=== PATIENT | female | born 1960 | race African-American/Black ===

== ENCOUNTER 2017-06-14 15:22 | Observation (INO) | payer OTHER ==
[~2017-06-14] VITALS: Ht 167.6 cm; Wt 82.0 kg
[~2017-06-14 15:22] MED LIST: AMLO5TAB22 PO; CARV25TA PO; FLON0.053; GABA300C3 PO; HYDR-3580 PO; OMEP20TA39 PO; ROPI.5 PO; VENL75 PO; VENL75TA91 PO
[2017-06-14 15:28] VITALS: BP 144/83; PULSE 60; RESP 15; TEMP 98.4; O2SAT 99
[2017-06-14] MEDS ORDERED: CARV25TA PO (15:38)
[2017-06-14] MEDS ORDERED: ESTR1TAB PO (15:38)
[2017-06-14] MEDS ORDERED: AMLO5 PO (15:38)
[2017-06-14] MEDS ORDERED: ZOFR8TAB PO (15:38)
[2017-06-14] MEDS ORDERED: GLUC1000 PO (15:38)
[2017-06-14] MEDS ORDERED: OXYC-395 PO (15:38)
[2017-06-14] MEDS ORDERED: PRIL20TA2 PO (15:38)
[2017-06-14] MEDS ORDERED: CITA20TA4 PO (15:38)
[2017-06-14 16:10] LABS: AUTOMATED NEUTROPHIL # 2.4 TH/MM3 (1.8-7.7); BASOPHIL % 0.9 % (0.0-2.0); EOSINOPHIL # 0.2 TH/MM3 (0-0.4); EOSINOPHIL % 3.7 % (0.0-4.0); HEMO FLAGS DIFF FINAL; LYMPH % 37.8 % (9.0-44.0); LYMPHOCYTE # 1.9 TH/MM3 (1.0-4.8); MEAN CELL VOLUME 81.3 FL (80.0-100.0); MEAN CORPUSCULAR HEMOGLOBIN 26.3 PG (27.0-34.0); MEAN CORPUSCULAR HGB CONC 32.3 % (32.0-36.0); MONO % 9.1 % (0.0-8.0); NEUT % 48.5 % (16.0-70.0); PLATELET COUNT 250 TH/MM3 (150-450); RED BLOOD COUNT 4.55 MIL/MM3 (4.00-5.30); RED CELL DISTRIBUTION WIDTH 14.1 % (11.6-17.2)
[2017-06-14 16:41] LABS: ANION GAP 8 MEQ/L (5-15); BLOOD UREA NITROGEN 18 MG/DL (7-18); CHLORIDE 107 MEQ/L (98-107); GLOMERULAR FILTRATION RATE 90 ML/MIN (>89); POTASSIUM 3.8 MEQ/L (3.5-5.1); SODIUM (NA) 142 MEQ/L (136-145)
[2017-06-14 17:09] LABS: CREATINE KINASE 72 U/L (26-192)
--- NOTE | 2017-06-14 18:24 | PD ---
HPI Chief Complaint: Chest Pain Time Seen by Provider: 18:19 Travel History International Travel<30 days: No Contact w/Intl Traveler<30days: No Traveled to known affect area: No History of Present Illness HPI 57-year-old Afro-[place]ian female presents the emergency department via EMS status post episode of chest pressure with left arm pain, and nausea while attending the pain clinic. Patient states she was given aspirin and pain improved. Patient's original EKG showed normal sinus rhythm without significant ST changes. Labs were ordered per protocol while seen in the trauma ambulance [place]. 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 Patient states she did have a stress test about 10 years ago but none since. She is allergic to morphine which makes her itch, and trazodone. PFSH Past Medical History Arthritis: Yes Blood Disorders: No Anxiety: Yes Depression: Yes Heart Rhythm Problems: No Cancer: No Cardiac Catheterization: Yes Cardiovascular Problems: Yes High Cholesterol: Yes Chemotherapy: No Chest Pain: Yes Congestive Heart Failure: No Diabetes: No Diminished Hearing: No Endocrine: No Gastrointestinal Disorders: Yes GERD: Yes Genitourinary: No Hypertension: Yes Immune Disorder: No Kidney Stones: No Musculoskeletal: Yes (CHRONIC LOW BACK PAIN HERNIATED DISCS T12-S1.) Neurologic: No Reproductive: No Respiratory: Yes ( CPAP AT NIGHT ) Myocardial Infarction: No Radiation Therapy: No Renal Failure: No Sleep Apnea: Yes Ulcer: Yes (BARRETTS ESOPHAGITIS) Tetanus Vaccination: Unknown Influenza Vaccination: No ?: Not Menopausal: Yes : 4 Para: 3 Miscarriage: 1 Past Surgical History Abdominal Surgery: Yes AICD: No Appendectomy: Yes (IN 1999) Arteriovenous Shunt: No Cholecystectomy: Yes ([place] 1992) Coronary Artery Bypass Graft: No Hysterectomy: Yes (RADICAL IN 1998) Insulin Pump: No Joint Replacement: No Neurologic Surgery: Yes (CERVICAL FUSION C5,C6 IN 2000) Pacemaker: No Other Surgery: Yes ( bilat salpengo-oophorectomy ) Social History Alcohol Use: No Tobacco Use: No Substance Use: No Allergies-Medications (Allergen,Severity, Reaction): Coded Allergies: trazodone (Verified Allergy, Severe, RAPID HEARTBEAT, 06/14/17) morphine (Unverified Adverse Reaction, Mild, Itching, 06/14/17) Reported Meds & Prescriptions Reported Meds & Active Scripts Active Reported Estradiol 1 Mg Tab 1 Mg PO DAILY Zofran (Ondansetron HCl) 8 Mg Tab 8 Mg PO DAILY Glucophage (Metformin HCl) 1,000 Mg Tab 1,000 Mg PO BIDPC Oxycodone (Oxycodone HCl) 10 Mg Tab 10 Mg PO Q6H PRN Citalopram (Citalopram Hydrobromide) 20 Mg Tab 20 Mg PO DAILY Norvasc (Amlodipine Besylate) 5 Mg Tab 5 Mg PO DAILY Prilosec (Omeprazole Magnesium) 20 Mg Tab Carvedilol 25 Mg Tab 25 Mg PO DAILY Review of Systems Except as stated in HPI: all other systems reviewed are Neg General / Constitutional: No: Fever Eyes: No: Visual changes HENT: No: Headaches Cardiovascular: Positive: Chest Pain or Discomfort, Other (left arm pain), No: Palpitations, Irregular Rhythm, Syncope, Dyspnea on exertion, Varicosities, Edema, Varicosities, Phlebitis, Claudication Respiratory: No: Shortness of Breath Gastrointestinal: Positive: Nausea, No: Vomiting, Diarrhea, Abdominal Pain Genitourinary: No: Dysuria Musculoskeletal: No: Pain Skin: No Rash Neurologic: No: Weakness Psychiatric: No: Depression Endocrine: No: Polydipsia Hematologic/Lymphatic: No: Easy Bruising Physical Exam Narrative GENERAL: Patient appears in no acute distress. SKIN: Warm and dry. Normal color. Normal turgor. HEAD: Atraumatic. Normocephalic. EYES: Pupils equal and round. No scleral icterus. No injection or drainage. ENT: No nasal bleeding or discharge. Mucous membranes pink and moist. NECK: Trachea midline. No JVD. Supple and nontender. CARDIOVASCULAR: Regular rate and rhythm. No murmurs gallops or rubs appreciated. RESPIRATORY: No accessory muscle use. Clear to auscultation. Breath sounds equal bilaterally. GASTROINTESTINAL: Abdomen soft, non-tender, nondistended. Hepatic and splenic margins not palpable. MUSCULOSKELETAL: Extremities without clubbing, cyanosis, or edema. No obvious deformities. NEUROLOGICAL: Awake and alert. No obvious cranial nerve deficits. Motor grossly within normal limits. Five out of 5 muscle strength in the arms and legs. Normal speech. PSYCHIATRIC: Appropriate mood and affect; insight and judgment normal. Data Data Last Documented VS Vital Signs Date Time Temp Pulse Resp B/P (MAP) Pulse Ox O2 Delivery O2 Flow Rate FiO2 06/14/17 15:30 Nasal Cannula 2.00 06/14/17 15:28 98.4 60 15 144/83 (103) 99 Orders Orders Electrocardiogram (06/14/17 15:39) Complete Blood Count With Diff (06/14/17 15:39) Basic Metabolic Panel (Bmp) (06/14/17 15:39) Ckmb (Isoenzyme) Profile (06/14/17 15:39) Troponin I (06/14/17 15:39) Chest, Single Ap (06/14/17 15:39) Iv Access Insert/Monitor (06/14/17 15:39) Ecg Monitoring (06/14/17 15:39) Oxygen Administration (06/14/17 15:39) Oximetry (06/14/17 15:39) Labs Laboratory Tests Test 06/14/17 15:40 White Blood Count 5.0 TH/MM3 Red Blood Count 4.55 MIL/MM3 Hemoglobin 12.0 GM/DL Hematocrit 37.0 % Mean Corpuscular Volume 81.3 FL Mean Corpuscular Hemoglobin 26.3 PG Mean Corpuscular Hemoglobin Concent 32.3 % Red Cell Distribution Width 14.1 % Platelet Count 250 TH/MM3 Mean Platelet Volume 8.4 FL Neutrophils (%) (Auto) 48.5 % Lymphocytes (%) (Auto) 37.8 % Monocytes (%) (Auto) 9.1 % Eosinophils (%) (Auto) 3.7 % Basophils (%) (Auto) 0.9 % Neutrophils # (Auto) 2.4 TH/MM3 Lymphocytes # (Auto) 1.9 TH/MM3 Monocytes # (Auto) 0.5 TH/MM3 Eosinophils # (Auto) 0.2 TH/MM3 Basophils # (Auto) 0.0 TH/MM3 CBC Comment DIFF FINAL Differential Comment Blood Urea Nitrogen 18 MG/DL Creatinine 0.80 MG/DL Random Glucose 113 MG/DL Calcium Level 8.7 MG/DL Sodium Level 142 MEQ/L Potassium Level 3.8 MEQ/L Chloride Level 107 MEQ/L Carbon Dioxide Level 27.0 MEQ/L Anion Gap 8 MEQ/L Estimat Glomerular Filtration Rate 90 ML/MIN Total Creatine Kinase 72 U/L Troponin I LESS THAN 0.02 NG/ML MDM Medical Decision Making Medical Screen Exam Complete: Yes Emergency Medical Condition: Yes Medical Record Reviewed: Yes Differential Diagnosis Chest pain. Cardiac syndrome. Malingering. Narrative Course Patient is medically stable at time of exam. CBC, CMP, and first troponin is normal. EKG showed normal sinus rhythm without significant ST changes. Aspirin was given by EMS. Chest x-ray shows no acute process per radiologist. Patient will be admitted to the chest pain center for further evaluation and treatment. Diagnosis Primary Impression: Chest pain Qualified Codes: R07.9 - Chest pain, unspecified Admitting Information Admitting Physician Requests: Observation Condition: Stable Cristopher Cervantes Jun 14, 2017 18:24
[2017-06-14] MEDS ORDERED: SODIUM CHLORIDE 0.9% FLUSH 10 ML FLUSH IV FLUSH PRN (18:30)
[2017-06-14] MEDS ORDERED: ACETAMINOPHEN/HYDROcodone 325 MG/7.5 MG TAB PO PRN (18:30)
[2017-06-14] MEDS ORDERED: ONDANSETRON HCL 4 MG/2 ML VIAL IV PUSH PRN (18:30)
[2017-06-14 18:40] VITALS: BP 147/81; PULSE 61; RESP 17; O2SAT 98
[2017-06-14 18:52] VITALS: O2SAT 98
[2017-06-14 19:33] LABS: CREATINE KINASE 75 U/L (26-192)
--- NOTE | 2017-06-14 19:37 | RADRPT ---
EXAM DATE/TIME: 06/14/2017 15:52 [facility] COMPARISON: CHEST SINGLE AP, March 12, 2014, 12:05. INDICATIONS : Chest pain and shortness of breath. MEDICAL HISTORY : None. SURGICAL HISTORY : Cervical spine fusion. ENCOUNTER: Initial ACUITY: 1 day PAIN SCORE: 7/10 LOCATION: Left chest FINDINGS: A single view of the chest demonstrates the lungs to be symmetrically aerated without evidence of mas s, infiltrate or effusion. The cardiomediastinal contours are unremarkable. Osseous structures are intact. CONCLUSION: No acute disease. No significant change has occurred. Claudy Velez MD on June 14, 2017 at 19:35 Board Certified Radiologist. This report was verified electronically.
[2017-06-14] MEDS: SODIUM CHLORIDE 0.9% FLUSH 10 ML FLUSH IV FLUSH SCH (21:57)
[2017-06-14 22:14] VITALS: PULSE 69
[2017-06-14 22:22] VITALS: BP 162/79; PULSE 76; RESP 18; O2SAT 96
[2017-06-14 23:01] LABS: CREATINE KINASE 75 U/L (26-192)
[2017-06-15] VITALS (11 sets, daily range): BP systolic 144–186; BP diastolic 70–90; PULSE 65–89; RESP 18–20; TEMP 98.1–98.3; O2SAT 95–100
[2017-06-15] MEDS ORDERED: ASPIRIN 325 MG TAB PO SCH (09:00)
[2017-06-15] MEDS: SODIUM CHLORIDE 0.9% FLUSH 10 ML FLUSH IV FLUSH SCH (10:27)
[2017-06-15] MEDS ORDERED: amLODIPine BESYLATE 5 MG TAB PO SCH (10:45)
[2017-06-15] MEDS ORDERED: CITALOPRAM HYDROBROMIDE 20 MG TAB PO SCH (10:45)
--- NOTE | 2017-06-15 11:02 | HHI.HP ---
HPI Primary Care Physician Unknown Chief Complaint Chest pain History of Present Illness This is a 57-year-old female that presents to ED via private vehicle with history of hypertension, diabetes, GERD, chronic back/neck pain that presents to ED initially for nausea. 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 His nonbloody nonbilious. She believes it was her breakfast content which included flores and grapes and eggs. She continued to nauseous which prompted her to go to the ED. Couple hours after being in the ED she states she began having a stabbing discomfort in her chest. She points epigastric region to indicate location of the discomfort. It did radiate a little bit upwards. Lasted a few minutes but would continue to recur a few more times. It did create some shortness of breath and diaphoresis. She'll also states the nausea intensified. But no other episodes of emesis. Denies history of heart disease but states she has had her heart checked out in the past. Upon reviewing records she had a cardiac catheterization 2003 that revealed angiographically normal coronaries. She had a stress test in February 2004 to this facility was nonischemic with an EF of 67%. She also states that she had a stress test within a couple years at [facility] that was also okay. Not currently following a vb developer. Currently denies chest discomfort. Denies recent travel. Denies recent sick contacts. Denies fevers or chills. Review of Systems General: Patient denies fevers, chills recent, and recent travel HEENT: Patient denies headache, sore throat, difficulty swallowing. Cardiovascular: Has the chest discomfort as mentioned above. Denies sensation of heart beating rapidly or irregularly. No syncope. She was diaphoretic. Respiratory: She was short of breath. Denies inspirational chest discomfort. Denies coughing wheezing or hemoptysis. GI: She was nauseous with one episode of emesis. Denies having abdominal pain however she pointed epigastric region when she was describing the location of her chest discomfort that began later. Denies diarrhea, constipation, bloody stools or dark stools. Musculoskeletal: Patient denies joint pain or edema. Denies calf pain or edema. Chronic back and neck pain. Neurovascular: Patient denies numbness, tingling, weakness in extremities. Denies headache. Endocrine: Denies polyuria and polydipsia. Hematologic: Denies easy bruising. Skin: Denies rash or itching. Past Family Social History Allergies: Coded Allergies: trazodone (Verified Allergy, Severe, RAPID HEARTBEAT, 06/14/17) morphine (Unverified Adverse Reaction, Mild, Itching, 06/14/17) Past Medical History Hypertension, diabetes, GERD, chronic back and neck pain. Denies known CAD. Lifetime nonsmoker. Past Surgical History Back surgery. Cardiac catheterization without intervention. Appendectomy, cholecystectomy, and hysterectomy. Reported Medications Reported Meds & Active Scripts Active Reported Estradiol 1 Mg Tab 1 Mg PO DAILY Zofran (Ondansetron HCl) 8 Mg Tab 8 Mg PO DAILY Glucophage (Metformin HCl) 1,000 Mg Tab 1,000 Mg PO BIDPC Oxycodone (Oxycodone HCl) 10 Mg Tab 10 Mg PO Q6H PRN Citalopram (Citalopram Hydrobromide) 20 Mg Tab 20 Mg PO DAILY Norvasc (Amlodipine Besylate) 5 Mg Tab 5 Mg PO DAILY Prilosec (Omeprazole Magnesium) 20 Mg Tab Carvedilol 25 Mg Tab 25 Mg PO DAILY Active Ordered Medications Current Medications Medications (Trade) Dose Ordered Sig/Nandini Route Start Time Stop Time Status Last Admin (NS Flush) 2 ml UNSCH PRN IV FLUSH 06/14/17 18:30 (NS Flush) 2 ml BID IV FLUSH 06/14/17 21:00 06/15/17 10:27 (Penn 7.5-325 Mg) 1 tab Q4H PRN PO 06/14/17 18:30 06/14/17 18:51 (Zofran Inj) 4 mg Q6H PRN IV PUSH 06/14/17 18:30 (Aspirin) 325 mg DAILY PO 06/15/17 09:00 06/15/17 10:27 (Norvasc) 5 mg DAILY PO 06/15/17 10:45 UNV (CeleXA) 20 mg DAILY PO 06/15/17 10:45 UNV (Roxicodone) 10 mg Q6H PRN PO 06/15/17 10:45 UNV Family History Denies family history of CAD. Social History Lifetime nonsmoker. Denies alcohol or illicit drugs. She states she is disabled secondary to chronic back and neck issues. Physical Exam Vital Signs Vital Signs Date Time Temp Pulse Resp B/P (MAP) Pulse Ox O2 Delivery O2 Flow Rate FiO2 06/15/17 08:41 89 06/15/17 08:27 97 21 06/15/17 08:12 158/80 (106) Automatic Cuff 06/15/17 07:55 98.3 66 20 167/79 (108) 97 06/15/17 05:26 21 06/15/17 04:04 98.1 67 18 149/70 (96) 100 06/15/17 03:57 70 06/15/17 00:19 98.1 65 18 154/72 (99) 100 06/15/17 00:10 75 06/14/17 22:22 76 18 162/79 (106) 96 06/14/17 22:14 69 06/14/17 20:28 06/14/17 18:52 98 Nasal Cannula 2.00 06/14/17 18:40 61 17 147/81 (103) 98 Nasal Cannula 2.00 06/14/17 15:30 Nasal Cannula 2.00 06/14/17 15:28 98.4 60 15 144/83 (103) 99 Physical Exam GENERAL: This is a well-nourished, well-developed patient, in no apparent distress. Patient speaks in clear complete sentences. Patient is pleasant. Her sister is also at the bedside. HEENT: Head is atraumatic and normocephalic. Neck is supple without lymphadenopathy and trachea is midline. No JVD or carotid bruits. CARDIOVASCULAR: Regular rate and rhythm without murmurs, gallops, or rubs. RESPIRATORY: Clear to auscultation. Breath sounds equal bilaterally. No wheezes , rales, or rhonchi. Chest wall is nontender. No use of accessory muscles. GASTROINTESTINAL: Abdomen is nontender, nondistended. Abdomen soft. No obvious pulsatile mass or bruit. No CVA tenderness. Strong femoral pulses bilaterally. Normal bowel sounds in all quadrants. MUSCULOSKELETAL: Patient is moving upper and lower extremities freely. No calf tenderness or edema, no Homans sign. Strong pulses in upper and lower extremities. NEUROLOGICAL: Patient is alert and oriented. Cranial nerves 2-12 are grossly intact. No focal deficits and speech is clear. SKIN: No rash and turgor is normal. Laboratory Laboratory Tests Test 06/14/17 15:40 06/14/17 18:40 06/14/17 22:02 White Blood Count 5.0 Red Blood Count 4.55 Hemoglobin 12.0 Hematocrit 37.0 Mean Corpuscular Volume 81.3 Mean Corpuscular Hemoglobin 26.3 Mean Corpuscular Hemoglobin Concent 32.3 Red Cell Distribution Width 14.1 Platelet Count 250 Mean Platelet Volume 8.4 Neutrophils (%) (Auto) 48.5 Lymphocytes (%) (Auto) 37.8 Monocytes (%) (Auto) 9.1 Eosinophils (%) (Auto) 3.7 Basophils (%) (Auto) 0.9 Neutrophils # (Auto) 2.4 Lymphocytes # (Auto) 1.9 Monocytes # (Auto) 0.5 Eosinophils # (Auto) 0.2 Basophils # (Auto) 0.0 CBC Comment DIFF FINAL Differential Comment Blood Urea Nitrogen 18 Creatinine 0.80 Random Glucose 113 Calcium Level 8.7 Sodium Level 142 Potassium Level 3.8 Chloride Level 107 Carbon Dioxide Level 27.0 Anion Gap 8 Estimat Glomerular Filtration Rate 90 Total Creatine Kinase 72 75 75 Troponin I LESS THAN 0.02 LESS THAN 0.02 LESS THAN 0.02 Result Diagram: 06/14/17 1540 06/14/17 1540 Imaging Last 48 hours Impressions Chest X-Ray 06/14/17 1539 Signed Impressions: Service Date/Time: Wednesday, June 14, 2017 15:52 - CONCLUSION: No acute disease. No significant change has occurred. Claudy Velez MD Course EKGs are sinus bradycardia without significant ST segment depressions or elevations. Caprini VTE Risk Assessment Caprini VTE Risk Assessment: No/Low Risk (score <= 1) Caprini Risk Assessment Model Point Value = 1 Point Value = 2 Point Value = 3 Point Value = 5 Age 41-60 Minor surgery BMI > 25 kg/m2 Swollen legs Varicose veins or History of unexplained or recurrent spontaneous Oral contraceptives or hormone replacement Sepsis (< 1 month) Serious lung disease, including pneumonia (< 1 month) Abnormal pulmonary function Acute myocardial infarction Congestive heart failure (< 1 month) History of inflammatory bowel disease Medical patient at bed rest Age 61-74 Arthroscopic surgery Major open surgery (> 45 min) Laparoscopic surgery (> 45 min) Malignancy Confined to bed (> 72 hours) Immobilizing plaster cast Central venous access Age >= 75 History of VTE Family history of VTE Factor V Leiden Prothrombin [id number] Lupus anticoagulant Anticardiolipin antibodies Elevated serum homocysteine Heparin-induced thrombocytopenia Other congenital or acquired thrombophilia Stroke (< 1 month) Elective arthroplasty Hip, pelvis, or leg fracture Acute spinal cord injury (< 1 month) Prophylaxis Regimen Total Risk Factor Score Risk Level Prophylaxis Regimen 0-1 Low Early ambulation 2 Moderate Order ONE of the following: *Sequential Compression Device (SCD) *Heparin 5000 units SQ BID 3-4 Higher Order ONE of the following medications: *Heparin 5000 units SQ TID *Enoxaparin/Lovenox 40 mg SQ daily (WT < 150 kg, CrCl > 30 mL/min) *Enoxaparin/Lovenox 30 mg SQ daily (WT < 150 kg, CrCl > 10-29 mL/min) *Enoxaparin/Lovenox 30 mg SQ BID (WT < 150 kg, CrCl > 30 mL/min) AND/OR *Sequential Compression Device (SCD) 5 or more Highest Order ONE of the following medications: *Heparin 5000 units SQ TID (Preferred with Epidurals) *Enoxaparin/Lovenox 40 mg SQ daily (WT < 150 kg, CrCl > 30 mL/min) *Enoxaparin/Lovenox 30 mg SQ daily (WT < 150 kg, CrCl > 10-29 mL/min) *Enoxaparin/Lovenox 30 mg SQ BID (WT < 150 kg, CrCl > 30 mL/min) AND *Sequential Compression Device (SCD) Assessment and Plan Assessment and Plan * Chest pain: Patient will continue to have serial cardiac enzymes and EKGs for ruling out purposes. She will be seen by Dr. Cornelius of cardiology in the chest pain center. She will undergo a Lexiscan as she states she would not bill to exercise on a treadmill with her chronic back issues. She'll be discharged home if her stress test is nonischemic with instructions follow-up with PCP. Her nausea has resolved. * Hypertension: Continue current medication. * Diabetes: Continue current medication. Follow diabetic diet. She is not on a statin. She should be taking 1 with her history of diabetes and should discuss with her PCP. There may be a reason that makes statins contraindicated. Again discussed this with her PCP. * Chronic back/neck pain: Continue current medication. Follow-up with her shading painter. * GERD: Continue current medication. Patient is stable at this time. She is agreeable to this plan. Oliver Carias Jun 15, 2017 11:02
[2017-06-15] MEDS ORDERED: GLUCAGON 1 MG/ML VIAL OTHER PRN (11:15)
[2017-06-15] MEDS ORDERED: DEXTROSE 50% IN WATER 50 ML VIAL(D50) IV PUSH PRN (11:15)
[2017-06-15] MEDS ORDERED: INSULIN ASPART SUPPLEMENTAL SCALE SQ SCH (12:00)
[2017-06-15] MEDS ORDERED: REGADENOSON INJ 0.4 MG/5 ML SYR ONE (13:02)
--- NOTE | 2017-06-15 14:02 | RADRPT ---
EXAM DATE/TIME: 06/15/2017 11:55 [facility] COMPARISON: MYOCARDIAL PERF PHARM SPECT, GATED W/EF, March 12, 2014, 15:23. INDICATIONS : Chest pain. Angina. DOSE: 25.4 mCi Tc99m Myoview at stress. 8.5 mCi Tc99m Myoview at rest. 0.4 mg Lexiscan STRESS SYMPTOMS: Chest tightness. EJECTION FRACTION: 61% MEDICAL HISTORY : Hypertension. Diabetes mellitus type 2. SURGICAL HISTORY : Cholecystectomy. Hysterectomy. Cervical fusion. ENCOUNTER: Initial ACUITY: 1 day PAIN SCALE: 4/10 LOCATION: Bilateral chest TECHNIQUE: The patient underwent pharmacologic stress with infusion of prescribed dose. Continuous ECG tracing was monitored during stress. Gated SPECT imaging was performed after stress and conventional SPECT i maging was performed at rest. The examination was performed on a SPECT/CT scanner, both attenuation and non-corrected datasets were reviewed. FINDINGS: DISTRIBUTION: The maximum perfused segment at stress is in the lateral wall. PERFUSION STUDY: The pattern of perfusion at stress is within normal limits. GATED STUDY: There is intact wall motion and thickening without hypokinetic or dyskinetic segments. CONCLUSION: 1. Unremarkable myocardial perfusion examination. No new or significant changes compared to the prior examination. 2. Ejection fraction 61%. RISK CATEGORY: low Junior Carl MD on June 15, 2017 at 13:57 Board Certified Radiologist. This report was verified electronically.
--- NOTE | 2017-06-15 15:21 | HHI.DCPOC ---
Discharge Care Plan Diagnosis: (1) DM (diabetes mellitus) (2) Chest pain (3) Hypertension (4) GERD (gastroesophageal reflux disease) (5) Chronic back pain (6) Chronic neck pain Goals to Promote Your Health WITH HISTORY OF DIABETES YOU SHOULD BE ON AN MARY [employer]ACE INHIBITOR(BLOOD PRESSURE MEDICINE) AND STATIN(CHOLESTEROL MEDICATION.) YOU SHOULD DISCUSS THIS WITH YOUR PRIMARY CARE PHYSICIAN. * To prevent worsening of your condition and complications * To maintain your health at the optimal level Directions to Meet Your Goals Take your medications as prescribed Follow your dietary instruction Follow activity as directed Keep your appointments as scheduled Take your immunizations and boosters as scheduled If your symptoms worsen call your PCP, if no PCP go to Urgent Care Center or Emergency Room Smoking is Dangerous to Your Health. Avoid second hand smoke Call the 24-hour hour crisis hotline for domestic abuse at Oliver Carias Jun 15, 2017 15:21
--- NOTE | 2017-06-15 17:43 | TR ---
Date Performed: 06/15/2017 Time Performed: 12:41:43 DOCTOR: Connor Cornelius DRUG LIST: CLINICAL HISTORY: CHEST PAIN REASON FOR TEST: CHEST PAIN REASON FOR ENDING: OBSERVATION: CONCLUSION: Lexiscan stress test was performed under standard four minute protocol. Radionuclid e was injected one minute prior to ending the test. No electrocardiographic abormalities were present to suggest ischemia. Nuclear imaging and interpretation are pending. COMMENTS:
--- NOTE | 2017-06-15 18:15 | EKG ---
Date Performed: 06/14/2017 Time Performed: 22:07:07 PTAGE: 57 years EKG: Sinus rhythm NORMAL ECG PREVIOUS TRACING : 06/14/2017 19.24 Since previous tracing, no significant change noted DOCTOR: Connor Cornelius Interpretating Date/Time 06/15/2017 18:15:06
--- NOTE | 2017-06-15 18:20 | EKG ---
Date Performed: 06/14/2017 Time Performed: 19:24:14 PTAGE: 57 years EKG: SINUS BRADYCARDIA BORDERLINE ECG PREVIOUS TRACING : 03/12/2014 11.49 Since previous tracing, no significant change noted DOCTOR: Connor Cornelius Interpretating Date/Time 06/15/2017 18:19:08
--- NOTE | 2017-06-15 18:23 | EKG ---
Date Performed: 06/14/2017 Time Performed: 16:48:02 PTAGE: 57 years EKG: SINUS BRADYCARDIA BORDERLINE ECG NO PREVIOUS TRACING DOCTOR: Connor Cornelius Interpretating Date/Time 06/15/2017 18:21:57
== END 2017-06-15 17:48 | disposition home or self-care (01) ==
LOC: NEDAMB 15:22 → NEDA 19:07 → NEPFCDU 20:19
PROVIDERS: ADMIT Internal Medicine Interventional Cardiology; ATTEND Internal Medicine Interventional Cardiology
DX: R07.9 Chest pain, unspecified (principal); M79.602 Pain in left arm; R11.0 Nausea; M19.90 Unspecified osteoarthritis, unspecified site; F41.9 Anxiety disorder, unspecified; F32.9 Major depressive disorder, single episode, unspecified; E78.00 Pure hypercholesterolemia, unspecified; K21.9 Gastro-esophageal reflux disease without esophagitis; I10 Essential (primary) hypertension; G89.29 Other chronic pain; M54.5 Low back pain; K22.70 Barrett's esophagus without dysplasia; Z79.899 Other long term (current) drug therapy; Z79.84 Long term (current) use of oral hypoglycemic drugs; E11.9 Type 2 diabetes mellitus without complications; M54.2 Cervicalgia; R00.1 Bradycardia, unspecified
CPT/HCPCS: 71010; 78452; 80048; 82550; 82948; 84484; 85025; 93005; 93017; 99285; A9502; G0378; J2785